=== PATIENT | female | born 2005 | race Hispanic/Latino ===

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

== ENCOUNTER 2024-10-10 20:21 | Emergency (ER) | payer SELFPAY ==
[~2024-10-10] VITALS: Ht 154.9 cm; Wt 49.9 kg
--- NOTE | 2024-10-10 20:32 | NUR ---
UA CUP PROVIDED
[2024-10-10 20:59] LABS: BASOPHILS # (AUTO) 0.05 K/uL (0.00-0.20); BASOPHILS % (AUTO) 0.6 % (0.0-5.0); EOSINOPHILS # (AUTO) 0.03 K/uL (0.00-0.70); EOSINOPHILS % (AUTO) 0.4 % (0.0-8.0); HEMATOCRIT 39.2 % (36-48); IMMATURE GRANULOCYTE ABSOLUTE 0.03 K/uL (0-1); LYMPHOCYTES # (AUTO) 1.1 K/uL (1.0-4.8); LYMPHOCYTES % (AUTO) 13.1 % (21.0-51.0); MEAN CORPUSCULAR HEMOGLOBIN 26.3 pg (27.0-33.0); MEAN CORPUSCULAR HGB CONC 31.1 g/dL (32.0-36.0); MEAN CORPUSCULAR VOLUME 84.5 fL (80-100); MONOCYTES # (AUTO) 0.6 K/uL (0.1-1.0); MONOCYTES % (AUTO) 7.1 % (3.0-13.0); NEUTROPHILS # (AUTO) 6.7 K/uL (1.8-7.7); NEUTROPHILS % (AUTO) 78.4 % (40.0-77.0); PLATELET COUNT (AUTO) 256 K/uL (130-400); RED BLOOD CELL COUNT(AUTO) 4.64 MIL/uL (4.00-5.50); RED CELL DISTRIBUTION WIDTH 16.2 % (11.0-15.5); WHITE BLOOD COUNT (AUTO) 8.5 K/uL (4.8-10.8)
[2024-10-10 21:09] LABS: CREATININE 0.8 mg/dL (0.5-1.0); POTASSIUM 3.3 mmol/L (3.5-5.1)
[2024-10-10 21:14] LABS: MAGNESIUM 1.7 mg/dL (1.80-2.40)
[2024-10-10] MEDS: MAGNESIUM OXIDE 400 MG TABLET PO ONE (21:28)
[2024-10-10] MEDS: 0.9%NACL 1000ML 1,000 ML IV ONE (21:28)
[2024-10-10] MEDS: PoTASSium BIcarbonate/CIT AC 25 MEQ TABLET.EFF PO ONE (21:28)
--- NOTE | 2024-10-10 21:28 | NUR ---
PT CARE ASSUMED AT THIS TIME
--- NOTE | 2024-10-10 22:09 | ERN ---
ED Note History of Present Illness Stated Complaint: DROOPY FACE, ARM PAIN Chief Complaint: Multiple Complaints Time Seen by MD: 20:29 Time Seen by Midlevel: 20:29 Dictation: The patient is a 19-year-old female with a history of thyroidectomy on levoth yroxine who presents to the emergency department with complaints of bilateral arm cramping and numbness to the face arms and legs onset just prior to arrival after eating. Patient denies any sensations of anxiety. Denies any chest pain shortness of breath abdominal pain, nausea or vomiting. No other complaints reported. Allergies: Coded Allergies: No Known Allergies (Unverified Allergy, Unknown, 04/06/21) Past Medical History Past Medical History: Hypothyroid, Other Additional Past Medical Hx: THYROID CANCER Surgical History: Other Surgical History Other: THYROIDECTOMY Social History: Lives with family LMP: Aug 23, 2024 RN Note Reviewed/Agreed w/PFSH: Yes Review of System Dictation Constitutional: Negative for fever,chills, and weight loss Eyes: Negative for injury, pain,redness, and discharge ENT: Negative for injury,pain or swelling Cardiovascular: Negative for chest pain, palpitations, and edema Respiratory: Negative for shortness of breath, cough, and wheezing, Abdomen/GI: Negative for abdominal pain, nausea, vomiting, diarrhea, and constipation Back: Negative for injury and pain : Negative for injury, bleeding and discharge MS/Extremity: Negative for injury and deformity, positive for generalized cramping l Skin: Negative for rash, and discoloration Neuro: Negative for headache, weakness, tingling, and seizure positive for generalized numbness Psych: Negative for suicide ideation, homicidal ideation, and hallucinations Initial Vital Sign VS Vital Signs Date Time Temp Pulse Resp B/P (MAP) Pulse Ox O2 Delivery O2 Flow Rate FiO2 10/10/24 20:22 99.3 108 20 134/78 100 Room Air 10/10/24 21:28 0 21 Physical Exam Dictation Vital Signs reviewed General Appearance: Alert, oriented x 3, no acute distress, well developed, nourished. Head and Face: non-traumatic. Eyes: PERRL, pink conjunctivas, eyelid no trauma, anterior chamber with arcus senilis. Ears: Pinnas intact and no signs of trauma or erythema ear canals clear and no discharge TM no erythema Nose: No discharge, no bleeding. Oropharynx: Mouth normal, tongue pink. pharynx clear,no erythema, tonsils no exudates, no abscesses noted, mucous membrane moist Neck: Supple, non-tender, no thyromegaly, no masses, no JVD, no bruits Breast:Deferred Chest:No tenderness, no crepitus, no paradoxical movement, no retractions Lungs:Clear, well-ventilated, symmetric, no rales, no wheezing, no rhonchi, no stridor, good breath sounds bilaterally Heart: Regular rate, regular rhythm, no murmur, no gallops Vascular: no peripheral edema, Abdomen: Soft, positive bowel sounds, nondistended, no guarding, nontender, no rebound, no masses no hepatomegaly, no splenomegaly, no Rasmussen's sign, no hernias. Rectal: Deferred Genital: Deferred Neurological: Normal speech, motor function intact, sensory function intact , no facial droop, no slurred speech upper extremities equal in strength, lower extremities equal in strength Musculoskeletal: Neck nontender, full range of motion, back nontender, full range of motion, Extremities: nontender, full range of motion Skin: Color pink, dry, no turgor, no rash, no lacerations, no abrasions, no contusions. Lymphatic: Deferred Results (Laboratory/Radiology) Laboratory/Radiology Laboratory Tests Test 10/10/24 20:53 White Blood Count 8.5 K/uL (4.8-10.8) Red Blood Count 4.64 MIL/uL (4.00-5.50) Hemoglobin 12.2 g/dL (12.0-16.0) Hematocrit 39.2 % (36-48) Mean Corpuscular Volume 84.5 fL (80-100) Mean Corpuscular Hemoglobin 26.3 pg (27.0-33.0) L Mean Corpuscular Hemoglobin Concent 31.1 g/dL (32.0-36.0) L Red Cell Distribution Width 16.2 % (11.0-15.5) H Platelet Count 256 K/uL (130-400) Mean Platelet Volume 10.5 fL (7.5-10.5) Immature Granulocyte % (Auto) 0.4 % (0-1) Neutrophils (%) (Auto) 78.4 % (40.0-77.0) H Lymphocytes (%) (Auto) 13.1 % (21.0-51.0) L Monocytes (%) (Auto) 7.1 % (3.0-13.0) Eosinophils (%) (Auto) 0.4 % (0.0-8.0) Basophils (%) (Auto) 0.6 % (0.0-5.0) Neutrophils # (Auto) 6.7 K/uL (1.8-7.7) Lymphocytes # (Auto) 1.1 K/uL (1.0-4.8) Monocytes # (Auto) 0.6 K/uL (0.1-1.0) Eosinophils # (Auto) 0.03 K/uL (0.00-0.70) Basophils # (Auto) 0.05 K/uL (0.00-0.20) Absolute Immature Granulocyte (auto 0.03 K/uL (0-1) Nucleated Red Blood Cells 0.0 % (0.0-0.19) Sodium Level 136 mmol/L (136-145) Potassium Level 3.3 mmol/L (3.5-5.1) L Chloride Level 100 mmol/L (101-111) L Carbon Dioxide Level 29 mmol/L (21-32) Blood Urea Nitrogen 7 mg/dL (7-18) Creatinine 0.8 mg/dL (0.5-1.0) Glomerular Filtration Rate Calc 108 mL/min (>90) Random Glucose 139 mg/dL (70-105) H Total Calcium 8.8 mg/dL (8.5-10.1) Magnesium Level 1.70 mg/dL (1.80-2.40) L Total Creatine Kinase 46 U/L (21-232) Serum Test, Qualitative NEGATIVE (NEGATIVE) Labs Reviewed?: Yes ED Course ED Course Orders Procedure Category Date Status Time Cbc With Differential LAB 10/10/24 Complete 20:38 Creatine Kinase, Total LAB 10/10/24 Complete 20:38 Basic Metabolic Panel LAB 10/10/24 Complete 20:38 Magnesium LAB 10/10/24 Complete 20:38 Testing, LAB 10/10/24 Complete Serum Hcg 20:38 0.9%Nacl 1000ml (Ns PHA 10/10/24 Complete 1000ml) 21:00 Magnesium Oxide PHA 10/10/24 Complete (Mag-Ox) 21:30 Potassium Bicarb/Cit PHA 10/10/24 Complete Ac 25meq (K-Lyte Ta 21:30 Current Medications Medications (Trade) Dose Ordered Sig/Enzo Route PRN Reason Start Time Stop Time Status Last Admin Dose Admin Magnesium Oxide (Mag-Ox) 400 mg ONCE ONCE PO 10/10/24 21:30 10/10/24 21:31 DC 10/10/24 21:28 Potassium Bicarbonate (K-Lyte Tablet Eff 25 Meq Tablet.eff) 25 meq ONCE ONCE PO 10/10/24 21:30 10/10/24 21:31 DC 10/10/24 21:28 Sodium Chloride 1,000 ml @ 0 mls/hr ONCE ONCE IV 10/10/24 21:00 10/10/24 21:01 DC 10/10/24 21:28 Vital Signs Date Time Temp Pulse Resp B/P (MAP) Pulse Ox O2 Delivery O2 Flow Rate FiO2 10/10/24 21:28 98.2 80 16 109/69 100 Room Air* 0 21 10/10/24 20:22 99.3 108 20 134/78 100 Room Air Medical Decision Making MDM The patient is a 19-year-old female with a history of thyroidectomy on levothyroxine who presents to the emergency department with complaints of bilateral arm cramping and numbness to the face arms and legs onset just prior to arrival after eating. Patient denies any sensations of anxiety. Denies any chest pain shortness of breath abdominal pain, nausea or vomiting. No other complaints reported. CBC showed no leukocytosis, no anemia, chemistry showed mild hypokalemia, hypomagnesemia, negative CK, normal renal function. Patient received potassium and magnesium replaced in ER. Received a L of fluids. Patient cramping resolved. Patient with no numbness. No facial droop, neurologically intact. Patient in no acute distress. Will be discharged to follow up with primary doctor Differential diagnosis: Rhabdomyolysis, dehydration, electrolyte imbalance, anxiety Need for hospitalization: Patient does not meet criteria for hospitalization. There are no social concerns with this patient. DX & DISP Disposition: Discharge Departure Impression: Primary Impression: Cramping of hands Additional Impressions: Hypokalemia, Hypomagnesemia Condition: Stable Additional Instructions: Please follow up with your primary doctor in 1-2 days. Your potassium and magnesium were low and were replaced in the ER. You can continue increasing your potassium and magnesium intake at home. If symptoms worsen please return to ER. FOLLOW-UP WITH PRIMARY CARE PROVIDER IN 1 TO 2 DAYS. TAKE MEDICATIONS DIRECTED HERE IN THE EMERGENCY ROOM. OKAY TO CONTINUE HOME MEDICATIONS UNLESS OTHERWISE DISCUSSED DURING YOUR VISIT IN THE EMERGENCY ROOM TODAY. RETURN TO Y OUR NEAREST EMERGENCY ROOM IF SYMPTOMS WORSEN OR IF THERE IS NO IMPROVEMENT. CALL 911 IF YOU NEED IMMEDIATE ASSISTANCE. TAKE TYLENOL OR MOTRIN [id number] NEEDED AND IF NO CONTRAINDICATIONS ARE PRESENT. INCREASE ORAL HYDRATION. A WOUND CULTURE OR URINE CULTURE WAS ORDERED HERE IN THE EMERGENCY ROOM DEPARTMENT PLEASE FOLLOW-UP WITH PRIMARY CARE PROVIDER AND ADVISE THEM TO GET REPEAT PORTS FROM OUR FACILITY. IF YOU HAD ANY TRACIE WRAP/SPLINTS THAT WERE APPLIED HERE, PLEASE DO NOT REMOVE THEM UNTIL YOU SEE YOUR PRIMARY CARE OR SPECIALTY. Referrals: SELF,REFERRAL (PCP) Time of Disposition: 22:08 I have reviewed the case, and I agree with, Diagnosis and Plan YOLANDA LI [employer] Oct 10, 2024 22:09
[2024-10-10 22:30] VITALS: BP 115/70; PULSE 80; RESP 16; TEMP 98.3; O2SAT 100
== END 2024-10-10 22:34 | disposition home or self-care (01) ==
LOC: EDH 20:21
DX: E87.6 Hypokalemia (principal); E83.42 Hypomagnesemia; M79.601 Pain in right arm; M79.602 Pain in left arm; E03.9 Hypothyroidism, unspecified; Z85.850 Personal history of malignant neoplasm of thyroid; Z90.89 Acquired absence of other organs
CPT/HCPCS: 99283; 96360; 82550; 83735; 80048; 84703; 85025; 36415; J7030